=== PATIENT | male | born 1990 | race Two or more races ===

== ENCOUNTER 2023-10-17 00:35 | Emergency (ER) | payer OTHER ==
[~2023-10-17] VITALS: Ht 170.2 cm; Wt 108.9 kg
[2023-10-17] MEDS ORDERED: GLUMETZA1000 MG PO (01:01)
[2023-10-17] MEDS ORDERED: CEFTRIAXONE SODIUM 1,000 MG VIAL IM STA (05:12)
[2023-10-17] MEDS ORDERED: KETOROLAC TROMETHAMINE 10 MG TABLET PO STA (05:13)
[2023-10-17] MEDS ORDERED: CEPHALEXIN750 MG PO (05:20)
[2023-10-17] MEDS ORDERED: KETO10TA2 PO (05:20)
== END 2023-10-17 05:30 ==
LOC: ER 00:36
DX: M79.674 Pain in right toe(s) (principal); E11.9 Type 2 diabetes mellitus without complications; Z79.84 Long term (current) use of oral hypoglycemic drugs; I10 Essential (primary) hypertension